=== PATIENT | male | born 1935 | race Caucasian/White ===

== ENCOUNTER 2016-11-28 11:04 | Inpatient (IN) | payer MEDICARE ==
[2016-11-28] MEDS ORDERED: IPRATROPIUM 0.5 MG/2.5 ML NEBU INHALATION STA (11:26)
[2016-11-28] MEDS ORDERED: ALBUTEROL NEBULIZED 2.5 MG/3 ML INHALATION STA (11:26)
[2016-11-28] MEDS ORDERED: DEXAMETHASONE SOD PHOSPHATE 10 MG/ML 1 ML VIAL IV STA (11:26)
[2016-11-28 12:24] LABS: Basophils # (A) 0.1 k/uL (0-0.2); Basophils % (A) 1 %; CH 31.4; CHCM 33.5; Eosinophils # (A) 0.4 k/uL (0-0.7); Eosinophils % (A) 3 %; HCT 41.9 % (39.0-53.0); HDW 3.21; HGB 13.7 gm/dL (13.0-17.5); Luc # (Auto) 0.18; Luc % (Auto) 2; Lymphocytes # (A) 1.3 k/uL (1.0-4.8); Lymphocytes % (A) 13 %; MCH 30.9 pg (25.0-35.0); MCHC 32.8 g/dL (31.0-37.0); MCV 94.1 fL (80.0-100.0); Mean Platelet Volume 8.5; Monocytes # (A) 0.6 k/uL (0-1.0); Monocytes % (A) 5 %; Neutrophils # (A) 7.9 k/uL (1.3-7.7); Neutrophils % (A) 76 %; RBC 4.45 m/uL (4.30-5.90); RDW 13.8 % (11.5-15.5); WBC 10.3 k/uL (3.8-10.6); WBC (Perox) 10.38
[2016-11-28 12:29] LABS: ALT 37 U/L (21-72); AST 23 U/L (17-59); Alkaline Phosphatase 92 U/L (38-126); Anion Gap 12 mmol/L; Blood Urea Nitrogen 20 mg/dL (9-20); Calcium 9.8 mg/dL (8.4-10.2); Carbon Dioxide 27 mmol/L (22-30); Chloride 104 mmol/L (98-107); Glucose 97 mg/dL (74-99); Non-African American GFR(MDRD) >60 (>60 ml/min/1.73 sqM); Potassium 4.6 mmol/L (3.5-5.1); Sodium 143 mmol/L (137-145); Total Bilirubin 0.5 mg/dL (0.2-1.3); Total Protein 6.9 g/dL (6.3-8.2)
--- NOTE | 2016-11-28 12:56 | XR ---
EXAMINATION TYPE: XR chest 2V DATE OF EXAM: 11/28/2016 COMPARISON: NONE HISTORY: Cough per patient. Chest pain per order. TECHNIQUE: Frontal and lateral views of the chest are obtained. FINDINGS: There is right greater than left bibasilar opacity medially consistent with atelectasis an d/or infiltrate. The cardiac silhouette size is upper limits of normal with atherosclerotic thoracic aorta. The osseous structures are intact. IMPRESSION: Medial right greater than left bibasilar infiltrate and/or atelectasis is felt present.
[2016-11-28] MEDS ORDERED: PNEUMONIA PROTOCOL UTILIZED 1 EACH MISC PO PRN (13:13)
[2016-11-28] MEDS ORDERED: AZITHROMYCIN 500 MG in SODIUM CHLORIDE 0.9% 250 ML IVPB STA (13:13)
[2016-11-28] MEDS ORDERED: ALBUTEROL NEBULIZED 2.5 MG/3 ML INHALATION PRN (13:13)
--- NOTE | 2016-11-28 13:22 | ED ---
General Adult HPI - General Chief complaint: Upper Respiratory Infection Stated complaint: ENT Time Seen by Provider: 11/28/16 11:13 Source: patient, RN notes reviewed Mode of arrival: ambulatory Limitations: no limitations - History of Present Illness Initial comments: 81-year-old male with no significant past medical history presents with a one- week history of cough, nasal congestion, and right frontal headache. Patient states he has a history of recurrent sinusitis. Denies fever or chills. States cough is mostly dry, on occasion he does have some sputum. Also reports sharp chest pain which is worse with cough. No past medical history of chronic bronchitis, no history of tobacco use. Patient is otherwise healthy, no significant chronic medical problems. - Related Data Home Medications Medication Instructions Recorded Confirmed Aspirin EC [Ecotrin Low Dose] 81 mg PO DAILY 11/28/16 11/28/16 Atorvastatin [Lipitor] 20 mg PO DAILY 11/28/16 11/28/16 Fish Oil/Dha/Epa [Fish Oil 1,200 1 cap PO DAILY 11/28/16 11/28/16 mg Fish Oil] Meloxicam (Unknown Dose) 1 tab PO DAILY 11/28/16 11/28/16 Multivit-Min/FA/Lycopen/Lutein 1 tab PO DAILY 11/28/16 11/28/16 [Centrum Silver Men Tablet] Omeprazole [Omeprazole] 20 mg PO DAILY 11/28/16 11/28/16 Allergies Allergy/AdvReac Type Severity Reaction Status Date / Time No Known Allergies Allergy Verified 11/28/16 11:58 Review of Systems ROS Statement: Those systems with pertinent positive or pertinent negative responses have been documented in the HPI. ROS Other: All systems not noted in ROS Statement are negative. Past Medical History Past Medical History: Rheumatoid Arthritis (RA) History of Any Multi-Drug Resistant Organisms: None Reported Past Surgical History: Back Surgery Past Psychological History: No Psychological Hx Reported Smoking Status: Former smoker Past Alcohol Use History: None Reported Past Drug Use History: None Reported General Exam Limitations: no limitations General appearance: alert, in distress (Mild respiratory distress) Head exam: Present: atraumatic, normocephalic Eye exam: Present: normal appearance, PERRL, EOMI ENT exam: Present: mucous membranes moist, other (Tenderness to palpation over the right frontal and maxillary sinus) Neck exam: Present: normal inspection, full ROM. Absent: tenderness Respiratory exam: Present: wheezes, rhonchi, prolonged expiratory Cardiovascular Exam: Present: regular rate, normal rhythm GI/Abdominal exam: Present: soft. Absent: distended, tenderness Extremities exam: Present: normal inspection, normal capillary refill. Absent: pedal edema Neurological exam: Present: alert, oriented X3. Absent: motor sensory deficit Psychiatric exam: Present: normal affect, normal mood Skin exam: Present: warm, dry, intact. Absent: cyanosis, diaphoretic Course Vital Signs 11/28/16 11/28/16 11/28/16 11:06 11:34 11:53 Temperature 98.3 F Pulse Rate 100 88 92 Respiratory 22 Rate Blood Pressure 134/77 O2 Sat by Pulse 92 L Oximetry 11/28/16 12:43 Temperature Pulse Rate 94 Respiratory 18 Rate Blood Pressure 130/83 O2 Sat by Pulse 94 L Oximetry Medical Decision Making - Medical Decision Making 80-year-old male presenting with cough , rhinorrhea, nasal congestion. Patient has no history of asthma, COPD, no history of tobacco use. On initial evaluation patient is tachypneic, oxygen saturations are low 90s on room air. Patient does have bilateral rhonchi with some scattered wheezing. Chest x-ray was obtained shows bilateral infiltrate at the lung bases. Laboratory studies are unremarkable. Blood cultures are obtained in the emergency department. Patient remains hypoxic after advised albuterol. Patient will be admitted for treatment of clinically required pneumonia as well as further albuterol treatments. Diagnosis: Community acquired pneumonia - Lab Data Result diagrams: 11/28/16 12:05 11/28/16 12:05 Lab Results 11/28/16 11/28/16 11/28/16 Range/Units 12:05 12:05 12:05 WBC 10.3 (3.8-10.6) k/uL RBC 4.45 (4.30-5.90) m/uL Hgb 13.7 (13.0-17.5) gm/dL Hct 41.9 (39.0-53.0) % MCV 94.1 (80.0-100.0) fL MCH 30.9 (25.0-35.0) pg MCHC 32.8 (31.0-37.0) g/dL RDW 13.8 (11.5-15.5) % Plt Count 294 (150-450) k/uL Neutrophils % 76 % Lymphocytes % 13 % Monocytes % 5 % Eosinophils % 3 % Basophils % 1 % Neutrophils # 7.9 H (1.3-7.7) k/uL Lymphocytes # 1.3 (1.0-4.8) k/uL Monocytes # 0.6 (0-1.0) k/uL Eosinophils # 0.4 (0-0.7) k/uL Basophils # 0.1 (0-0.2) k/uL Sodium 143 (137-145) mmol/L Potassium 4.6 (3.5-5.1) mmol/L Chloride 104 (98-107) mmol/L Carbon Dioxide 27 (22-30) mmol/L Anion Gap 12 mmol/L BUN 20 (9-20) mg/dL Creatinine 0.90 (0.66-1.25) mg/dL Est GFR (MDRD) Af Amer >60 (>60 ml/min/1.73 sqM) Est GFR (MDRD) Non-Af >60 (>60 ml/min/1.73 sqM) Glucose 97 (74-99) mg/dL Plasma Lactic Acid Nitin 1.8 (0.7-2.0) mmol/L Calcium 9.8 (8.4-10.2) mg/dL Total Bilirubin 0.5 (0.2-1.3) mg/dL AST 23 (17-59) U/L ALT 37 (21-72) U/L Alkaline Phosphatase 92 (38-126) U/L Total Protein 6.9 (6.3-8.2) g/dL Albumin 4.2 (3.5-5.0) g/dL Disposition Clinical Impression: Pneumonia Disposition: ADMITTED IP TO THIS [facility] Referrals: Nonstaff,Physician [Primary Care Provider] - 1-2 days Time of Disposition: 13:22 Decision to Admit Reason: Admit from EC Decision Date: 11/28/16 Decision Time: 13:22
[2016-11-28] MEDS: SODIUM CHLORIDE 0.9% 1,000 ML IV SCH (14:05)
[2016-11-28 15:02] VITALS: BMI 25.8
[2016-11-29] MEDS ORDERED: PANTOPRAZOLE 40 MG TABLET PO SCH (07:30)
--- NOTE | 2016-11-29 07:45 | XR ---
EXAMINATION TYPE: XR chest 2V DATE OF EXAM: 11/29/2016 COMPARISON: 11/28/2016 HISTORY: 81-year-old male pneumonia TECHNIQUE: Frontal and lateral views FINDINGS: The heart is upper limits of normal in size. Some focal opacity along the medial right base and cardi ac apex could represent prominent epicardial fat pad. Hyperinflation with flattening of the hemidiaph ragms. Some patchy posterior basilar opacity on the lateral view selecting one of the costophrenic an gles. IMPRESSION: 1. COPD with some focal opacity medial right base and cardiac apex could represent a prominent epicar dial fat pad or bibasilar infiltrates. Correlate with patient's symptoms. Follow-up may be helpful. 2. Some focal patchy posterior basilar opacity on the lateral view probably represents atelectasis.
[2016-11-29 07:57] VITALS: RESP 16
[2016-11-29] MEDS ORDERED: ATORVASTATIN 20 MG TAB PO SCH (09:00)
[2016-11-29] MEDS ORDERED: ASPIRIN 81 MG CHEW PO SCH (09:00)
[2016-11-29] MEDS ORDERED: AZITHROMYCIN 500 MG TAB PO SCH (09:00)
[2016-11-29 15:26] VITALS: BP 117/65; TEMP 97.9
[2016-11-29 15:57] VITALS: PULSE 92
--- NOTE | 2016-11-29 15:59 | P.HPIM ---
History of Present Illness H&P Date: 11/29/16 Chief Complaint: Congestive chest History of presenting complaint: This is a very pleasant 81 a patient who is visiting her from [place]. Patient has no local family doctor. Chronic stable medical conditions include GERD, hyperlipidemia, rheumatoid arthritis. Patient is an ex-smoker. Patient's been congested for 4-5 days, cough not able to bring up anything. Denies any fever, appetite is good, does get some wheezing cough and sinus trouble. Has had a few episodes of this off and on. Seems to be more related to season and temperature changes. GEN.: None EYES: None HEENT: Sinus congestion NECK: None RESPIRATORY: As above, short of breath and wheezing CARDIOVASCULAR: None GASTROINTESTINAL: None GENITOURINARY: None MUSCULOSKELETAL: None LYMPHATICS: None HEMATOLOGICAL: None PSYCHIATRY: None NEUROLOGICAL: None Past medical history: GERD, hyperlipidemia, rheumatoid arthritis Past surgical history: Back surgery, had a procedure on the vertebra, surgery and the hand for cat bite Social history: Smoked a pipe for 45 years stopped 17 years ago, , alcohol occasionally in multiple double jobs currently residing in [place] Family history: Noncontributory to presentation, reviewed VITAL SIGNS: Temperature 98.3, pulse 100, respiration 22, blood pressure 134/77 , pulse ox 92% room air GENERAL: Average built, sitting up, occasional coughing. EYES: Pupils equal. Conjunctiva normal. HEENT: External appearance of nose and ears normal, oral cavity grossly normal. NECK: JVD not raised; masses not palpable. HEART: First and second heart sounds are normal; no edema. LUNGS: Respiratory rate increased, decreased breath sounds and expiratory wheezing. ABDOMEN: Soft, nontender, liver spleen not palpable, no masses palpable. LYMPHATICS: No lymph nodes palpable in the axilla and neck. PSYCH: Alert and oriented x3; mood and affect normal. NEUROLOGICAL: Cranial nerves grossly intact; no facial asymmetry, power and sensation grossly intact. 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 Do not think patient needs any antibiotics since we discontinued the same. Had a lengthy talk with the patient and and his daughter the bedside questions were answered. Patient when discharge was to follow-up with Dr. Salas in [place] Past Medical History Past Medical History: GERD/Reflux, Hyperlipidemia, Rheumatoid Arthritis (RA) History of Any Multi-Drug Resistant Organisms: None Reported Past Surgical History: Back Surgery Additional Past Surgical History / Comment(s): HAD A PROCEDURE TO "DISSOLVE" A COUPLE OF VERTABRAE IN HIS BACK. CAT BITE TO RIGHT HAND, SURGERY Past Anesthesia/Blood Transfusion Reactions: No Reported Reaction Past Psychological History: No Psychological Hx Reported Smoking Status: Former smoker Past Alcohol Use History: None Reported Past Drug Use History: None Reported - Past Family History Father Additional Family Medical History / Comment(s): IN 70'S SMOKER. Mother Additional Family Medical History / Comment(s): MOTHER IN 70'S Medications and Allergies Home Medications Medication Instructions Recorded Confirmed Type Aspirin EC [Ecotrin Low Dose] 81 mg PO DAILY 11/28/16 11/28/16 History Atorvastatin [Lipitor] 20 mg PO DAILY 11/28/16 11/28/16 History Fish Oil/Dha/Epa [Fish Oil 1,200 1 cap PO DAILY 11/28/16 11/28/16 History mg Fish Oil] Meloxicam (Unknown Dose) 1 tab PO DAILY 11/28/16 11/28/16 History Multivit-Min/FA/Lycopen/Lutein 1 tab PO DAILY 11/28/16 11/28/16 History [Centrum Silver Men Tablet] Omeprazole [Omeprazole] 20 mg PO DAILY 11/28/16 11/28/16 History Allergies Allergy/AdvReac Type Severity Reaction Status Date / Time No Known Allergies Allergy Verified 11/28/16 11:58 Results CBC & Chem 7: 11/28/16 12:05 11/28/16 12:05
[2016-11-29] MEDS ORDERED: IPRATROPIUM-ALBUTEROL 3 ML NEB INHALATION SCH (16:00)
[2016-11-29] MEDS ORDERED: ENOXAPARIN 40 MG/0.4 ML SYRINGE SQ SCH (16:00)
[2016-11-29] MEDS ORDERED: methylPREDNISolone SOD SUCCI 125 MG/2 ML VIAL IV SCH (16:00)
[2016-11-29] MEDS: SODIUM CHLORIDE 0.9% 1,000 ML IV SCH (16:24)
== END 2016-11-29 18:54 | disposition home or self-care (01) | DRG 190 ==
LOC: EC 11:04 → 4MS4W 13:13
PROVIDERS: ADMIT Hospitalist; ATTEND Hospitalist
DX: J44.0 Chronic obstructive pulmonary disease with (acute) lower respiratory infection (principal); J12.9 Viral pneumonia, unspecified; M06.9 Rheumatoid arthritis, unspecified; J44.1 Chronic obstructive pulmonary disease with (acute) exacerbation; E78.5 Hyperlipidemia, unspecified; K21.9 Gastro-esophageal reflux disease without esophagitis; R09.02 Hypoxemia; Z79.899 Other long term (current) drug therapy; Z79.82 Long term (current) use of aspirin; Z87.891 Personal history of nicotine dependence
CPT/HCPCS: 36415; 71020; 80053; 83605; 85025; 87040; 94640; 96374; 99285